=== PATIENT | male | born 1975 | race Caucasian/White ===

== ENCOUNTER 2024-03-27 22:48 | Observation (INO) | payer OTHER, SELFPAY ==
[2024-03-27 20:05] VITALS: BMI 27.5
[2024-03-27 20:08] VITALS: BP 134/93
--- NOTE | 2024-03-27 21:06 | ED.GENMED ---
History of Present Illness
<DAWN Ralph - Last Filed: 03/27/24 22:13>
General
Chief Complaint: Skin Problem
Source: patient
Exam Limitations: none
Time Seen by Provider: 03/27/24 20:15
Nursing documentation reviewed up to this point in time: agreed with
Travel History
Have you had any contact with someone who has COVID-19?: No
Do you have any symptoms of coronavirus? Fever > 100 degrees, chills, cough, shortness of breath, sore throat, loss of taste or smell, muscle aches, or headache?: No
History of Present Illness
History of Present Illness:
48-year-old male presents to the ED for evaluation. Pt reports for the past 2 days he has not felt well. Mother noticed a rash to his left lower leg Saturday however that rash is looking worse. Father reports he has been laying in bed all day
and was not eating anything or drinking anything yesterday. Today he drank fluids but did not eat anything.
He denies cough runny nose nasal congestion. Denies abdominal pain urinary frequency urgency. He went to urgent care prior to arrival and was found to have a 101 temp
Past History
<DAWN Ralph - Last Filed: 03/27/24 22:13>
Past History
ED Past Medical History: Asthma and GERD
ED Past Surgical History: None
Social History
Tobacco: Smoker
Alcohol: Occasional
Personal: Single
Living: with family
Employment: Employed
Review of Systems
<DAWN Ralph - Last Filed: 03/27/24 22:13>
Review of Systems
Allergies reviewed?: Yes
All Other Systems: ROS reviewed and negative except as documented in HPI and ROS
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
EENT: Reports no symptoms
Respiratory: Reports no symptoms
Cardiac: Reports no symptoms
ABD/GI: Reports anorexia; Denies nausea or vomiting
: Reports no symptoms
Musculoskeletal: Reports no symptoms
Skin: Reports other (redness to left leg )
Neurological: Reports no symptoms
Psychiatric: Reports no symptoms
Phy Exam
<DAWN Ralph - Last Filed: 03/27/24 22:13>
General Physical Exam
General Presentation: no apparent distress
General age: appears stated age
General Skin: warm and dry
General Habitus: normal
General Mental: alert
General Hydration: appears well hydrated
Neurological Exam
Neurological Exam: alert and oriented x3
Musculoskeletal Exam
Musculoskeletal Exam: full ROM and other (Left lower leg with scattered discoloration, appears ecchymotic/purpura like and red no obvious swelling to calf nontender no open wounds)
Course
<DAWN Ralph - Last Filed: 03/27/24 22:13>
Orders/Labs/Results
Orders:
Orders
03/27/24 21:11
C-Reactive Protein Urgent
Comment: ADD ON
COVID-19 Antigen Urgent
Source: Nasal Swab
Complete Blood Count/With Diff Urgent
Comprehensive Metabolic Panel Urgent
Erythrocyte Sed Rate Urgent
Comment: ADD ON
Lactic Acid Urgent
PTT Urgent
Prothrombin Time Urgent
Blood Culture Q30M
ANGEL Source: Blood/Venous
Specimen Description:
Influenza A+B Rapid Molecular Urgent
ANGEL Source: Nasal Swab
Specimen Description:
03/27/24 21:45
Blood Culture Q30M
ANGEL Source: Blood/Venous
Specimen Description:
03/27/24 21:48
Add On- LAB Urgent
Tests Added?: sed rate and crp
03/27/24 22:06
CeFAZolin 1 GRAM [Ancef] 1 gram in 5 ml IV NOW
03/27/24 22:10
NSS 1000mL Bolus WIDE OPEN 0.9% Sodium Chloride 1000 ml [Nss] 1,000 ml IV BOLUS
Abnormal Lab Results
03/27/24
21:11
Absolute Neuts (auto) 7.3 H 10^3/uL
(1.4-6.5)
Absolute Lymphs (auto) 0.8 L 10^3/uL
(1.2-3.4)
Absolute Monos (auto) 0.7 H 10^3/uL
(0.1-0.6)
Neutrophils % 82.1 H %
(42.2-75.2)
Lymphocytes % 8.8 L %
(20.5-51.1)
Sodium 128 L mmol/L
(135-145)
Chloride 94 L mmol/L
(98-107)
Glucose 107 H mg/dl
(70-99)
03/27/24 21:11
03/27/24 21:11
Vital Signs
Initial and Last Documented VS:
Initial Vital Signs
Temp Pulse Resp BP Pulse Ox
98.5 F 106 16 134/93 99
03/27/24 20:08 03/27/24 20:08 03/27/24 20:08 03/27/24 20:08 03/27/24 20:08
Last Documented Vital Signs
Temp Pulse Resp BP Pulse Ox
98.5 F 106 16 134/93 99
03/27/24 20:08 03/27/24 20:08 03/27/24 20:08 03/27/24 20:08 03/27/24 20:08
Sales Operations Consultant consulted with Physician
Sales Operations Consultant consulted with physician?: Yes
Name of Physician Consulted: Claude
<Ace Arce MD - Last Filed: 03/27/24 21:45>
Orders/Labs/Results
Orders:
Orders
03/27/24 21:11
C-Reactive Protein Urgent
Comment: ADD ON
COVID-19 Antigen Urgent
Source: Nasal Swab
Complete Blood Count/With Diff Urgent
Comprehensive Metabolic Panel Urgent
Erythrocyte Sed Rate Urgent
Comment: ADD ON
Lactic Acid Urgent
PTT Urgent
Prothrombin Time Urgent
Blood Culture Q30M
ANGEL Source: Blood/Venous
Specimen Description:
Influenza A+B Rapid Molecular Urgent
ANGEL Source: Nasal Swab
Specimen Description:
03/27/24 21:45
Blood Culture Q30M
ANGEL Source: Blood/Venous
Specimen Description:
03/27/24 21:48
Add On- LAB Urgent
Tests Added?: sed rate and crp
03/27/24 22:06
CeFAZolin 1 GRAM [Ancef] 1 gram in 5 ml IV NOW
03/27/24 22:10
NSS 1000mL Bolus WIDE OPEN 0.9% Sodium Chloride 1000 ml [Nss] 1,000 ml IV BOLUS
Abnormal Lab Results
03/27/24
21:11
Absolute Neuts (auto) 7.3 H 10^3/uL
(1.4-6.5)
Absolute Lymphs (auto) 0.8 L 10^3/uL
(1.2-3.4)
Absolute Monos (auto) 0.7 H 10^3/uL
(0.1-0.6)
Neutrophils % 82.1 H %
(42.2-75.2)
Lymphocytes % 8.8 L %
(20.5-51.1)
Sodium 128 L mmol/L
(135-145)
Chloride 94 L mmol/L
(98-107)
Glucose 107 H mg/dl
(70-99)
03/27/24 21:11
03/27/24 21:11
Vital Signs
Initial and Last Documented VS:
Initial Vital Signs
Temp Pulse Resp BP Pulse Ox
98.5 F 106 16 134/93 99
03/27/24 20:08 03/27/24 20:08 03/27/24 20:08 03/27/24 20:08 03/27/24 20:08
Last Documented Vital Signs
Temp Pulse Resp BP Pulse Ox
98.5 F 106 16 134/93 99
03/27/24 20:08 03/27/24 20:08 03/27/24 20:08 03/27/24 20:08 03/27/24 20:08
<DAWN Ralph - Last Filed: 03/27/24 22:13>
MDM/Problems Addressed
Differential Diagnosis Includes:
Not limited to cellulitis clotting issue
MDM/Problems Addressed:
Patient is a 48-year-old male with no past medical history who has not felt well over the past several days noticed a rash to his left lower leg which is gotten progressively worse. He has been sleeping for the past 2 days. On exam patient has a
rash to his left lower leg that almost looks like purpura mixed with erythema. Denies any fevers and is afebrile with a normal white count. Patient is not been eating or drinking that well his sodium was low at 120 he was given fluids. Patient
evaluated by ED physician. Coagulation tests were done PT PTT INR normal, platelets normal
With extent of rash and the fact that rash has become worse over the past several days with other symptoms of fatigue low sodium will admit
<DAWN Ralph - Last Filed: 03/27/24 22:13>
*Pulse Oximetry
Patient hypoxic: no
*Critical Care Note
Total Time (30-74mins, 75-104mins- exclusive of procedures): Not Applicable
ED Attending Note
<DAWN Ralph - Last Filed: 05/10/24 22:13>
-
Portions of this chart may have been created with voice recognition software.� Occasional wrong word or��sound alike� substitutions may have occurred due to the inherent limitations of voice recognition software.
<Ace Arce MD - Last Filed: 03/27/24 21:45>
ED Attending Note
Patient seen and examined by attending physician: Yes
I performed the substantive portion of visit, reviewed & personally made and approve the management plan that is documented in note by myself or HANS.: Yes
ED Attending Note:
48-year-old healthy male with a progressive rash to the left lower leg x 2 days. Feels like he might have a fever. Did have a 101 temp at urgent care. Rash is painful. No other rash noted except for the leg.
On exam patient is a purpuric large rash to mostly the left anterior medial ritter from the knee down towards the ankle. No petechia. No posterior calf tenderness cord or erythema. Good distal pulses and color. Patient is nontoxic in appearance
Vasculitis versus cellulitis. Labs and workup in progress. Warrants inpatient treat
Discharge Plan
Departure
Patient Disposition: Admit
Date of Disposition: 03/27/24
Time of Disposition: 22:12
Admit to: Med/Surg
Admit to doctor: hospitalist
Presentation/result/management discussed w/ accepting MD/DO: Hospitalist
Patient with high blood pressure during this ER visit?: Yes
Condition: Fair
Covid-19: Not Applicable
Discharge Problem:
Rash, Acute hyponatremia, Fatigue
Prescriptions:
No Action
ascorbic acid (vitamin C) [Vitamin C] 500 MG tablet
1,000 mg PO BID Qty: 56 0RF
Rx Instructions:
Take 1,000 mg twice a day for 14 days
albuterol sulfate 1 PUFF HFA aerosol inhaler
2 puff inhalation R Q4HPRN PRN (Reason: shortness of breath) Qty: 1 0RF
zinc sulfate 220 MG capsule
220 mg PO DAILY Qty: 14 0RF
Rx Instructions:
Take 220 mg daily for 14 days
cholecalciferol (vitamin D3) 1,000 UNITS tablet
2,000 units PO DAILY Qty: 28 0RF
Rx Instructions:
Take 2,000 units daily for 14 days
melatonin 5 MG tablet
5 mg PO HS Qty: 14 0RF
Rx Instructions:
Take 5 mg daily at bedtime for 14 days
sulfamethoxazole-trimethoprim 1 TABLET tablet
1 tab PO BID Qty: 14 0RF
omeprazole 40 MG capsule,delayed release(DR/EC)
40 mg PO DAILY Qty: 30 0RF
Referrals:
Tushar Gutierrez DO [Family Provider] -
Interventions
Interventions:
*General Assessment Last Done: 03/27/24 20:08
Discharge Date and Time
Print Language: SINHALA
[2024-03-27 21:30] LABS: % Basophils 0.5 % (0-2); % Eosinophils 0.3 % (0-6); % Immature Granulocytes 0.5 % (0-0.5); % Lymphocytes 8.8 % (20.5-51.1); % Monocytes 7.8 % (1.7-9.3); % Neutrophils 82.1 % (42.2-75.2); Absolute Lymphocytes 0.8 10^3/uL (1.2-3.4); Absolute Monocytes 0.7 10^3/uL (0.1-0.6); Absolute Neutrophils 7.3 10^3/uL (1.4-6.5); Hematocrit 43.5 % (39.0-52.0); Hemoglobin 16.1 g/dL (13.0-18.0); Mean Corpuscular Hgb 30.3 pg (27.0-31.0); Mean Corpuscular Volume 81.8 fL (80.0-94.0); Mean Platelet Volume 9.3 fL (7.4-10.4); Nucleated Red Blood Cells % 0 % (-); Platelet Count 162 10^3/uL (130-400); Red Blood Cell Count 5.32 10^6/uL (4.70-6.10); Red Cell Dist. Width 13.1 % (11.5-14.5); White Blood Cell Count 8.9 10^3/uL (4.8-10.8)
[2024-03-27 21:37] LABS: Lactic Acid 1.5 mmol/L (0.7-2.0)
[2024-03-27 21:40] LABS: APTT 33.7 Sec (23.4-35.0); INR 1.13; PT 14.4 Sec (11.4-14.6)
[2024-03-27 21:41] LABS: ALT (SGPT) 14 U/L (0-50); AST (SGOT) 38 U/L (17-59); Albumin 4.1 g/dl (3.5-5.0); Alkaline Phosphatase 83 U/L (38-126); Blood Urea Nitrogen 15 mg/dl (9-20); Calcium 9.1 mg/dl (8.4-10.2); Carbon Dioxide 23 mmol/L (22-30); Chloride 94 mmol/L (98-107); Glucose 107 mg/dl (70-99); Potassium 3.9 mmol/L (3.5-5.1); Sodium 128 mmol/L (135-145); Total Bilirubin 1.1 mg/dl (0.2-1.3); Total Protein 7.4 g/dl (6.3-8.2); eGFR > 60.00
[2024-03-27 22:00] VITALS: BP 132/78
[2024-03-27 22:18] LABS: Erythrocyte Sed Rate 31 mm/hour (0-20)
--- NOTE | 2024-03-27 22:30 | HPS.HSE ---
Addendum entered and electronically signed by Rosana Macdonald MD 03/28/24 07:11:
On review, the purpura starting by the ankle and moving centrally, non-specific generalized symptoms of headache, malaise raise concern for rickettsiosis. The geography is atypical but has been located throughout the country. Serology is
insensitive. Biopsy may be diagnostic. Patient may benefit from doxycycline. If spike fever, consider ID consult.
Original Note:
Family Physician
-
Family Physician: Tushar Gutierrez
Chief Complaint
-
Fatigue, fever, rash
History of Present Illness
This is a 48 y.o male who denies significant past medical history and not on any medications presenting with rash, malaise, flu like-illness.
Patient reported symptoms began about 2 days ago with a rash starting just below the ankles then spreading to the ritter over the last 2 days. He reports that 1 day ago he started having a non-productive cough with associated headache. He denies
sore throat, post nasal drip, nasal congestion or sinus congestion. He reports low appetitite and minimal po intake. He started taking Nyquil yesterday due to his symptoms. He also reports nausea and watery diarrhea x 3. Reported to have a fever
of 101 at urgent care just prior to coming to ED today.
Patient denies any other medications. He denies recent travels. He denies sick contacts.
In ED he was afbrile, hemodynamically stable but tachycardic to 106. Oxygen sat owas 99%. No respiratory distress. ECG with normal sinus rhythm at a rate of 76 and sinus arrhythmia. No ischemia. INR 1.1. White count was 8.9 hemoglobin 16
platelet 162. Labs are notable for a sodium of 128 with a normal BUN of 15 and creatinine 0.9. COVID is pending.
Medical History
Past Medical History
Past Medical History: Reports None
Past Surgical History: Reports None
Social History
Tobacco: Smoker
Alcohol: None
Drug: None
Personal: Single
Living: With Family
Employment: Employed
Family History
Family History: Not pertinent
Allergies / Home Medications
Allergies reflects when Allergies were last updated in [facility].
Home Medications with original date entered in [facility]
Allergy/Medication List:
Allergies
Allergy/AdvReac Type Severity Reaction Status Date / Time
No Known Allergies Allergy Verified 01/24/23 20:17
Home Medications
NyQuil 1 dose PO BID PRN cold/flu symptoms, sleep 03/27/24
Review of Systems
-
History Source: Patient
Constitutional: Reports Fever and Fatigue
Respiratory: Reports Cough
Cardiac: Reports No Symptoms
Abdomen/GI: Reports Nausea and Diarrhea
: Reports No Symptoms
Musculoskeletal: Reports Joint Pain
Skin: Reports Rash
Neurological: Reports Headache
Endocrine: Reports No Symptoms
Hematologic/Lymphatic: Reports No Symptoms
Psych: Reports No Symptoms
Physical Exam
Vital Signs
Vital Signs
Temp Pulse Resp BP Pulse Ox
98.5 F 106 16 134/93 99
03/27/24 20:08 03/27/24 20:08 03/27/24 20:08 03/27/24 20:08 03/27/24 20:08
Physical Exam
General: Well Developed, Well Nourished, No Apparent Distress and Poor Appetite
HEENT: NormoCephalic, Anicteric, Moist mucous membranes, Atraumatic and PERRLA
Respiratory: Clear
Cardiac: S1/S2 and Regular Rhythm
Breast: Deferred by me
GI: Soft, Non Tender, Non Distended and Normal Bowel Sounds
Rectal: Deferred by Provider
Genito-urinary: Deferred by me
Musculoskeletal: No Clubbing, No Cyanosis and Edema, Left Lower Extremity (trace)
Skin: Warm and Rash
Neuro: AO x 3
Hematologic/Lymphatic: No Lymphadenopathy
Psych: Calm
Laboratory Results
-
03/27/24 21:11
03/27/24 21:11
Laboratory Results
PT 14.4 Sec (11.4-14.6) 03/27/24 21:
INR 1.13 03/27/24 21:
APTT 33.7 Sec (23.4-35.0) 03/27/24 21:
Lactic Acid 1.5 mmol/L (0.7-2.0) 03/27/24:
Total Bilirubin 1.1 mg/dl (0.2-1.3) 03/27/24:
AST 38 U/L (17-59) 03/27/24:
ALT 14 U/L (0-50) 03/27/24 21:
Alkaline Phosphatase 83 U/L (38-126) 03/27/24 21:
Data Reviewed
-
Medical Tests (Nuc Med, Echo, EKG etc): Image Personally Visualized and interpreted
Lab Data: Labs Reviewed by me
Old Records: Reviewed
Impression/Plan
-
IMPRESSION:
Patient with a localized left lower extremity rash and associated non-specific symptoms of malaise, generalized aches and pains, loss of appetite and lab notable for significant hyponatremia. Does not appear toxic but is ill-appearing.
PLAN:
1. Fever - Said to have fever at urgent care to 101. No fever in ED. No tylenol given. No leukocytosis on labs. Reports non-productive cough and headache without any significant sinus symptoms.
- admit to med/surg
- xray, procalcitonin, flu and covid testing
- blood cultures sent
- u/a and urine cultures
- ceftriaxone IV for now
2. Rash - Purpuric rash developing over 2 days in the left leg. Mild edema. There is warmth and tenderness to palpation c/w cellulitis. However the purpura is more c/w vasculitis. INR WNL.
- blood culture as above, rule if negative and still febrile may need to rule out endocarditis
- u/a for hematuria/casts
- check esr/crp
- check lfts
- derm consultation
3. Hyponatremia - Suspect hypovolemic given 2 days of poor appetite, low po, diarrhea and mild vomiting.
- check urine Na and osmolality
- iv fluids for now
- repeat Na in am
DVT PPX - lovenox sq
Full Code
[2024-03-27] MEDS: NSS 1000 IV (22:31)
[2024-03-27 22:48] LABS: COVID-19 Antigen Negative (Negative)
[2024-03-27 23:23] VITALS: BP 124/73
[2024-03-27] MEDS: ANCEF 5 IV (23:27)
[2024-03-28] VITALS: BP 127/76
[2024-03-28 00:37] VITALS: BMI 27.9
[2024-03-28 00:39] VITALS: BP 107/78
[2024-03-28] MEDS: TYLENOL 650 MG PO ×6 (00:48→21:18)
[2024-03-28] MEDS: NSS 1000 IV ×2 (00:49→03:10)
[2024-03-28 02:25] LABS: Urine Albumin Trace (Neg - Trace); Urine Bilirubin Negative (Negative); Urine Character Clear (Clear); Urine Color Yellow; Urine Glucose Negative (Negative); Urine Ketone Negative (Negative); Urine Leukocyte Negative (Negative); Urine Nitrite Negative (Negative); Urine Occult Blood Negative (Negative); Urine Specific Gravity 1.005 (<1.030); Urine Urobilinogen Negative (Neg - 1+)
[2024-03-28 02:35] LABS: Osmolality Urine 153 mOsm/kg (300-900)
[2024-03-28 02:46] LABS: Urine Sodium < 5 mmol/L (30-90)
[2024-03-28 07:50] VITALS: BP 109/69
[2024-03-28 08:23] LABS: Hematocrit 39.7 % (39.0-52.0); Hemoglobin 14.1 g/dL (13.0-18.0); Mean Corp Hgb Conc. 35.5 g/dL (33.0-37.0); Mean Corpuscular Hgb 29.7 pg (27.0-31.0); Mean Corpuscular Volume 83.8 fL (80.0-94.0); Mean Platelet Volume 9.4 fL (7.4-10.4); Platelet Count 143 10^3/uL (130-400); Red Blood Cell Count 4.74 10^6/uL (4.70-6.10); Red Cell Dist. Width 13.2 % (11.5-14.5)
[2024-03-28] MEDS: ANCEF 5 IV (08:23)
[2024-03-28 08:44] LABS: Procalcitonin 0.51 ng/ml (0.0-0.25)
[2024-03-28 08:57] LABS: Blood Urea Nitrogen 13 mg/dl (9-20); Calcium 8.2 mg/dl (8.4-10.2); Carbon Dioxide 26 mmol/L (22-30); Chloride 99 mmol/L (98-107); Estimated Creatinine Clearance > 125 ml/min; Glucose 95 mg/dl (70-99); Magnesium 2.2 mg/dl (1.6-2.3); Potassium 3.5 mmol/L (3.5-5.1); Sodium 132 mmol/L (135-145); eGFR > 60.00
--- NOTE | 2024-03-28 13:18 | W.PN.HOSP.TC ---
Addendum entered and electronically signed by Kylie Maloney MD 03/28/24 14:06:
Patient seen and examined independently--agree with plan set forth by Dr. Park
GENERAL: well developed, well nourished,male in no apparent distress
HEENT: NC/AT
HEART: regular rate and rhythm, +S1, +S2
LUNGS : clear to auscultation bilaterally
ABDOM: soft, nontender, nondistended, + bowel sounds
EXT: no cyanosis, clubbing--mildly swollen left ankle
NEUROLOGIC: grossly intact
SKIN: large purplish purpuric rash on left leg between knee and ankle with faint redness going up towards thigh--NO rash on palms of hands or soles of feet--no other rash elsewhere--tattoo on right calf
Fever/rash -- likely related to the leg/skin findings--follow temp curve--Chest x-ray unremarkable--Negative for flu--Blood cultures are pending--cont rocephin--await ID
Purpuric rash--pt works at [employer] but does not hike or go outdoors much--insect bite (spider, tick), vasculitis, infection, DVT all possible--inflammatory markers are elevated, LFTs are normal--await ID--add doxycycline--check US r/o DVT
Hyponatremia--Suspect due to hypovolemia as pt had n/v/d--Sodium improving with IV fluids
DVT prophylaxis Lovenox
CODE STATUS full code
Original Note:
Today's Communication/Plan
-
Continue ceftriaxone for now
Add doxycycline
Assessment / Plan
Assessment / Plan
Impression
Fever
Purpuric rash
Hyponatremia
Assessment and plan
Fever
Patient has been febrile in the past 24 hours with true fever of 101.4
Patient is hemodynamically stable
Chest x-ray unremarkable
Pro-Keith 0.51
Negative for flu
Blood cultures are pending
Will continue ceftriaxone IV for now-as the patient states that his symptoms have improved
Consult ID
Purpuric rash
Differential diagnosis for fever with rash
Suspect #1 vasculitis #2 tick bite #3 insect bite(brown recluse spider) #4 infection
Consults ID
Elevated ESR/CRP indicating infection
LFTs are normal
Will add doxycycline for possible tick/insect bite
Will check peripheral ultrasound to rule out DVT
Hyponatremia
Suspect due to hypovolemia
Sodium improving with IV fluids
DVT prophylaxis Lovenox
CODE STATUS full code
Anticipated Discharge: > 48 hours
Subjective/Interval History
-
Date of Service: March 28, 2024
48-year-old male with [place] disease any significant past medical history, is not on any medications presented to the ED with purpuric rash, diarrhea, fever. Patient sister reports of him being in autism spectrum disorder. Patient states that the
symptoms has been going on for the past 2 days, starting on 03/25. Patient states that fever and the rash presented together. The rash first started above the left ankle spreading to the ritter, upto below the knee. Patient states that he was unable
to bear weight on his left leg as it was painful. He he also reports of a day of nonproductive cough with headache. He denies sore throat postnasal drip nasal congestion no sinus congestion. He reports of nausea and watery diarrhea x 3. Reported
to have 101 fever at urgent care prior to coming to ED. the only medication he took was NyQuil he denies any taking any other medication, recent travels, sick contacts. In the past 24 hours in the hospital he has had 1 episode of true fever with
101.4.
Objective Data
-
Labs:
Laboratory Results
03/28/24
07:01
WBC 6.0
Hgb 14.1
Hct 39.7
Plt Count 143
Sodium 132 L
Potassium 3.5
Chloride 99
Carbon Dioxide 26
BUN 13
Creatinine 0.8
Glucose 95
Calcium 8.2 L
Vital Signs:
Vital Signs
Temp Pulse Resp BP Pulse Ox
98 F 75 16 109/69 99
03/28/24 07:50 03/28/24 07:50 03/28/24 07:50 03/28/24 07:50 03/28/24 07:50
Review of Systems
-
History Source: Patient and Family
All other systems: Reviewed and negative (Except mentioned)
Skin: Reports Rash (No improvement) and Other (Reports of tightening when walking)
Physical Exam
-
General: Comfortable and Conversant
HEENT: Normocephalic and Atraumatic
Respiratory: Clear to Auscultation
Cardiac: Regular Rhythm and S1/S2
GI: Soft, Nontender, Nondistended and Normal Bowel Sounds
Musculoskeletal: Other (Left ankle edema 2+ pitting)
Skin: Warm and Rash (Purpuric rash starting above left ankle extending up to the ritter, bite garrido noted )
Neuro: AO x 3
Psych: Calm
Data Reviewed
-
Labs: Labs Reviewed by me and Discussed with Physician
[2024-03-28] MEDS: NSS IV (14:37)
--- NOTE | 2024-03-28 14:51 | CM ---
coding compliance manager reviewed patient's chart and met with patient and patient lives with his parents in a multilevel home, patient is independent with adl's and ambulation, no dme, patient drives, patient has a prescription plan and patient uses [facility].
PCP: Dr. rosen
Plan; Home when stable, no needs.
--- NOTE | 2024-03-28 15:14 | CON.ID ---
Consultation
-
Date/Time Consultation Requested: 03/28/2024 1027
Date/Time Consultation Performed: 03/28/2024 1500
Requesting Provider: Dr. Park
Performing Provider: Dr. Alvarez
Reason for Consultation: Left leg infection
Chief Complaint / Past History
History of Present Illness
Isaiah Vance is a 48-year-old man being evaluated at the request of Dr. Park in regards to left lower extremity cellulitis. History is obtained from chart review, along with patient interview.
The patient denies any prior medical history and reports he was in his usual state of health until 3 days ago when he woke up with some erythema noted on the left medial ankle. Over the next several days there was marked spread of the area, along
with swelling of the lower extremity. Additionally, he had some episodes of vomiting and generalized lethargy. He was seen at a local urgent care where he was found to have a temperature of 101 degrees.
He denies any trauma to the area. He denies any bites from insects that he knows about. He has not had any travel out of the general area. He has admitted to some sweats.
Past History
Past Medical History: None
Additional Past Surgical History:
Right thumb surgery
Right ankle ORIF with plate and screws
Allergy History:
No Known Allergies Allergy (Verified 01/24/23 20:17)
Medications Reviewed: Yes
Current Antibiotics:
Cefazolin
Social History
Tobacco: Smoker (1/2 PPD)
Alcohol: Occasional
Drug: None
Personal: Single
Living: With Family
Employment: Employed ([employer])
Family History
Family History: Not Pertinent
Review of Systems
Vital Signs
Temp Pulse Resp BP Pulse Ox
98 F 75 16 109/69 99
03/28/24 07:50 03/28/24 07:50 03/28/24 07:50 03/28/24 07:50 03/28/24 07:50
Physical Exam
Physical Exam
Constitutional: No Acute Distress, Comfortable and Non-toxic
Head: Normocephalic
Eyes: Pupils Equal, Pupils Round, No Conjunctival Hemorrhage and Sclera Anicteric
Oral: No Thrush and No Ulcers
Cardiovascular: S1/S2; Negative S3/S4 or Murmur
Pulmonary: Clear and Non Labored
Gastrointestinal: Soft, Non Tender, Non Distended and Normal Bowel Sounds
Extremities: Edema
Skin: Rash (Left leg with erythema and purpuric type rash extending from the ankle up to the proximal calf area.)
Neurological: Awake and Alert
Psychological: Calm
Lab / Diagnostic Study Results
03/28/24 07:01
03/28/24 07:01
Abs Immat Gran (auto) 0.0 10^3/uL (0-0.05) 03/27/24 21:11
Absolute Neuts (auto) 7.3 10^3/uL (1.4-6.5) H 03/27/24 21:11
Absolute Lymphs (auto) 0.8 10^3/uL (1.2-3.4) L 03/27/24 21:11
Absolute Monos (auto) 0.7 10^3/uL (0.1-0.6) H 03/27/24 21:11
Absolute Basos (auto) 0.0 10^3/uL (0-0.2) 03/27/24 21:11
Immature Gran % 0.5 % (0-0.5) 03/27/24 21:11
Neutrophils % 82.1 % (42.2-75.2) H 03/27/24 21:11
Lymphocytes % 8.8 % (20.5-51.1) L 03/27/24 21:11
Monocytes % 7.8 % (1.7-9.3) 03/27/24 21:11
Eosinophils % 0.3 % (0-6) 03/27/24 21:11
Basophils % 0.5 % (0-2) 03/27/24 21:11
ESR 31 mm/hour (0-20) H 03/27/24 21:11
PT 14.4 Sec (11.4-14.6) 03/27/24 21:11
INR 1.13 03/27/24 21:11
Lactic Acid 1.5 mmol/L (0.7-2.0) 03/27/24 21:11
C-Reactive Protein 226.60 mg/L (0.0-10.00) H 03/27/24 21:11
Procalcitonin 0.51 ng/ml (0.0-0.25) H 03/28/24 07:01
Microbiology Results
Micro:
03/28/24 02:29 C. difficile GDH Antigen & Toxins - Final
Feces/Stool Negative for toxigenic C.difficile
03/27/24 22:04 Blood Culture - Pending
Blood/Venous
03/27/24 22:04 Influenza Types A & B (DARIUS) - Final
Nasal Swab Negative for Influenza A & B, NAAT
Negative results must be combined with clinical observations
and patient history.
Nucleic Acid Amplification test (NAAT)performed on the
[employer] platform.
03/27/24 21:11 Blood Culture - Pending
Blood/Venous
Assessment / Plan
Left leg cellulitis
Left leg purpura of unclear etiology
Nausea/vomiting
Tobacco abuse
Recommendations:
At present, etiology of the left leg purpura is not immediately clear. Findings are entirely consistent cellulitis.
Potential envenomation by a spider is possible, although somewhat unlikely.
Vasculitis should be kept on the differential.
Will continue with cefazolin 2 g IV every 8 hours.
Consider biopsy.
Consider Dermatology and/or Rheumatology evaluation.
Care Review
Plan reviewed with: Physician (Hospitalist)
[2024-03-28 15:51] VITALS: BP 112/70
[2024-03-28] MEDS: ANCEF 10 IV (16:28)
[2024-03-28] MEDS: LOVENOX 40 MG SC (16:29)
[2024-03-28] MEDS: VIBRAMYCIN 100 MG PO (21:18)
[2024-03-28 23:30] VITALS: BP 133/77
[2024-03-29] MEDS: TYLENOL 650 MG PO ×6 (00:11→20:54)
[2024-03-29] MEDS: ANCEF 10 IV ×3 (00:11→17:48)
[2024-03-29] MEDS: TYLENOL PO (05:04)
[2024-03-29 06:43] LABS: % Basophils 0.4 % (0-2); % Eosinophils 0.7 % (0-6); % Immature Granulocytes 0.5 % (0-0.5); % Lymphocytes 13.1 % (20.5-51.1); % Monocytes 14.7 % (1.7-9.3); % Neutrophils 70.6 % (42.2-75.2); Absolute Eosinophils 0.1 10^3/uL (0-0.7); Absolute Monocytes 1.1 10^3/uL (0.1-0.6); Absolute Neutrophils 5.4 10^3/uL (1.4-6.5); Hematocrit 35.3 % (39.0-52.0); Hemoglobin 12.9 g/dL (13.0-18.0); Mean Corp Hgb Conc. 36.5 g/dL (33.0-37.0); Mean Corpuscular Hgb 30.1 pg (27.0-31.0); Mean Corpuscular Volume 82.5 fL (80.0-94.0); Nucleated Red Blood Cells % 0 % (-); Platelet Count 161 10^3/uL (130-400); Red Blood Cell Count 4.28 10^6/uL (4.70-6.10); Red Cell Dist. Width 13.4 % (11.5-14.5); White Blood Cell Count 7.6 10^3/uL (4.8-10.8)
[2024-03-29 07:05] LABS: Blood Urea Nitrogen 8 mg/dl (9-20); Calcium 8.2 mg/dl (8.4-10.2); Carbon Dioxide 30 mmol/L (22-30); Chloride 98 mmol/L (98-107); Estimated Creatinine Clearance > 125 ml/min; Glucose 92 mg/dl (70-99); Potassium 3.2 mmol/L (3.5-5.1); Sodium 133 mmol/L (135-145); eGFR > 60.00
[2024-03-29 07:22] VITALS: BP 124/82
[2024-03-29] MEDS: VIBRAMYCIN 100 MG PO ×2 (10:02→20:54)
--- NOTE | 2024-03-29 12:22 | W.PN.HOSP.TC ---
Addendum entered and electronically signed by Kylie Maloney MD 03/29/24 13:29:
Patient seen and examined independently--agree with plan set forth by Dr. Park
GENERAL: well developed, well nourished,male in no apparent distress
HEENT: NC/AT
HEART: regular rate and rhythm, +S1, +S2
LUNGS : clear to auscultation bilaterally
ABDOM: soft, nontender, nondistended, + bowel sounds
EXT: no cyanosis, clubbing--mildly swollen left ankle
NEUROLOGIC: grossly intact
SKIN: some improvement to large purplish purpuric rash on left leg between knee and ankle with faint redness going up towards thigh with patches of clearing--NO rash on palms of hands or soles of feet--no other rash elsewhere--tattoo on right calf
Fever/rash -- likely related to the leg/skin findings--follow temp curve--Chest x-ray unremarkable--Negative for flu--Blood cultures are pending--cont rocephin--await ID
Purpuric rash--pt works at [employer] but does not hike or go outdoors much--insect bite (spider, tick), vasculitis, infection all possible--inflammatory markers are elevated, LFTs are normal--apprec ID--added doxycycline--US neg for DVT--consider
derm and/or rheum consult in AM, would benefit from skin biopsy--follow inflammatory markers (ESR, CRP)
Hyponatremia/hypokalemia--Suspect due to hypovolemia as pt had n/v/d--Sodium improving with IV fluids--replete K
DVT prophylaxis Lovenox
CODE STATUS full code
Original Note:
Today's Communication/Plan
-
replete K
Skin biopsy
consult dermatology
Consult rheumatology
Assessment / Plan
Assessment / Plan
Impression
Fever
Purpuric rash
Hyponatremia
Hypokalemia
Assessment and plan
Fever
Afebrile in the past 24 hours
Patient is hemodynamically stable
Chest x-ray unremarkable
Pro-Keith 0.51
Negative for flu, covid
Blood cultures no growth prelim
Drop in Hb TO 12.9<14.1
Continue Cefepime and doxycycline
Purpuric rash
Not sure what is causing the rash
Some improvement today
Differential diagnosis for fever with rash
Suspect #1 vasculitis #2 tick bite #3 insect bite(brown recluse spider) #4 infection
Elevated ESR/CRP indicating infection
LFTs are normal
Peripheral Ultrasound negative for DVT
Considering skin biopsy per ID
Will consult dermatology tomorrow
Consult rheum
Hyponatremia
Suspect due to hypovolemia
Sodium improving - 133
Hypokalemia
Replete K
DVT prophylaxis Lovenox
CODE STATUS full code
Anticipated Discharge: > 48 hours
Subjective/Interval History
-
Date of Service: March 29, 2024
Patient reports of pain in left leg while getting out of bed. He is able to walk.
Objective Data
-
Labs:
Laboratory Results
03/29/24
06:09
WBC 7.6
Hgb 12.9 L
Hct 35.3 L
Plt Count 161
Sodium 133 L
Potassium 3.2 L
Chloride 98
Carbon Dioxide 30
BUN 8 L
Creatinine 0.7
Glucose 92
Calcium 8.2 L
Vital Signs:
Vital Signs
Temp Pulse Resp BP Pulse Ox
97.7 F 80 18 133/77 97
03/28/24 23:30 03/28/24 23:30 03/28/24 23:30 03/28/24 23:30 03/28/24 23:30
I&O
03/28/24 03/29/24 03/30/24
06:59 06:59 06:59
Intake Total 1480 / 1480
Balance 1480 / 1479
Review of Systems
-
History Source: Patient
All other systems: Reviewed and negative
Physical Exam
-
General: Comfortable and Conversant
HEENT: Normocephalic and Atraumatic
Respiratory: Clear to Auscultation
Cardiac: Regular Rhythm and S1/S2
GI: Soft, Nontender and Nondistended
Skin: Warm and Rash (some improvement )
Data Reviewed
-
Labs: Labs Reviewed by me and Discussed with Physician
[2024-03-29] MEDS: KCL 40 MEQ PO (13:32)
[2024-03-29 15:34] VITALS: BP 110/71
--- NOTE | 2024-03-29 16:15 | W.PN.ID1 ---
Date of Service
Date of Service: March 29, 2024
Today's Communication
Continue cefazolin for today. Await potential biopsy.
Assessment / Plan
Left leg cellulitis
Left leg purpura of unclear etiology
Nausea/vomiting
Tobacco abuse
Recommendations:
At present, etiology of the left leg purpura is not immediately clear. Findings are not entirely consistent with cellulitis.
Potential envenomation by a spider is possible, although somewhat unlikely.
Vasculitis should be kept on the differential.
Will continue with cefazolin 2 g IV every 8 hours.
For potential biopsy.
Consider Dermatology and/or Rheumatology evaluation.
Chief Complaint
-: Other (Left lower extremity lesions.)
Subjective / Review of Systems
Review of Systems: No Fever and No Chills
Vital Signs / Physical Exam
Vital Signs
Vital Signs
Temp Pulse Resp BP Pulse Ox
99 F 79 18 124/82 98
03/29/24 07:22 03/29/24 07:22 03/29/24 07:22 03/29/24 07:22 03/29/24 07:22
Physical Exam
Constitutional: No Acute Distress, Comfortable and Non-toxic
Pulmonary: Non Labored
Skin: Rash (Petechial type rash (palpable) noted on the left lower extremity.)
Neurological: Awake and Alert
Psychological: Calm
Objective Data
Lab Data
Lab Results
03/29/24 06:09
03/29/24 06:09
ESR 31 mm/hour (0-20) H 03/27/24 21:11
PT 14.4 Sec (11.4-14.6) 03/27/24 21:11
INR 1.13 03/27/24 21:11
APTT 33.7 Sec (23.4-35.0) 03/27/24 21:11
Estimated Creat Clear > 125 ml/min 03/29/24 06:09
Lactic Acid 1.5 mmol/L (0.7-2.0) 03/27/24 21:11
Total Bilirubin 1.1 mg/dl (0.2-1.3) 03/27/24 21:11
AST 38 U/L (17-59) 03/27/24 21:11
ALT 14 U/L (0-50) 03/27/24 21:11
Alkaline Phosphatase 83 U/L (38-126) 03/27/24 21:11
C-Reactive Protein 226.60 mg/L (0.0-10.00) H 03/27/24 21:11
Most recent labs reviewed.
Micro Results:
03/27/24 22:04 Blood Culture - Preliminary
Blood/Venous No Growth in 24 hours- Final report to follow
03/27/24 21:11 Blood Culture - Preliminary
Blood/Venous No Growth in 24 hours- Final report to follow
03/28/24 02:29 C. difficile GDH Antigen & Toxins - Final
Feces/Stool Negative for toxigenic C.difficile
03/27/24 22:04 Influenza Types A & B (DARIUS) - Final
Nasal Swab Negative for Influenza A & B, NAAT
Negative results must be combined with clinical observations
and patient history.
Nucleic Acid Amplification test (NAAT)performed on the
[employer] platform.
[2024-03-29] MEDS: LOVENOX 40 MG SC (17:49)
[2024-03-29 23:30] VITALS: BP 115/68
[2024-03-30] MEDS: ANCEF 10 IV ×2 (00:02→08:46)
[2024-03-30] MEDS: TYLENOL PO ×2 (00:02)
[2024-03-30] MEDS: TYLENOL 650 MG PO ×3 (03:13→12:03)
[2024-03-30 07:30] VITALS: BP 131/86
[2024-03-30 08:23] LABS: % Basophils 0.5 % (0-2); % Immature Granulocytes 1.1 % (0-0.5); % Lymphocytes 17.4 % (20.5-51.1); % Monocytes 10.3 % (1.7-9.3); % Neutrophils 69.7 % (42.2-75.2); Absolute Basophils 0.1 10^3/uL (0-0.2); Absolute Eosinophils 0.1 10^3/uL (0-0.7); Absolute Immature Granulocytes 0.1 10^3/uL (0-0.05); Absolute Lymphocytes 1.6 10^3/uL (1.2-3.4); Absolute Neutrophils 6.5 10^3/uL (1.4-6.5); Hematocrit 37.4 % (39.0-52.0); Hemoglobin 13.5 g/dL (13.0-18.0); Mean Corp Hgb Conc. 36.1 g/dL (33.0-37.0); Mean Corpuscular Hgb 30.1 pg (27.0-31.0); Mean Corpuscular Volume 83.3 fL (80.0-94.0); Mean Platelet Volume 9.6 fL (7.4-10.4); Nucleated Red Blood Cells % 0 % (-); Platelet Count 218 10^3/uL (130-400); Red Blood Cell Count 4.49 10^6/uL (4.70-6.10); Red Cell Dist. Width 13.7 % (11.5-14.5); White Blood Cell Count 9.3 10^3/uL (4.8-10.8)
[2024-03-30 08:44] LABS: Blood Urea Nitrogen 7 mg/dl (9-20); Calcium 8.8 mg/dl (8.4-10.2); Carbon Dioxide 29 mmol/L (22-30); Chloride 97 mmol/L (98-107); Estimated Creatinine Clearance > 125 ml/min; Glucose 83 mg/dl (70-99); Potassium 3.6 mmol/L (3.5-5.1); Sodium 136 mmol/L (135-145); eGFR > 60.00
[2024-03-30] MEDS: VIBRAMYCIN 100 MG PO (08:46)
[2024-03-30 09:05] LABS: Erythrocyte Sed Rate 43 mm/hour (0-20)
--- NOTE | 2024-03-30 09:37 | CM ---
Chart reviewed and patient lives with parents, is independent with adl's and ambulation, no dme, home when stable.
Plan; Home when stable.
--- NOTE | 2024-03-30 12:37 | W.PN.HOSP.TC ---
Today's Communication/Plan
-
d/c
Assessment / Plan
Assessment / Plan
pt is a 48 year old male
Fever -- likely viral in nature--follow temp curve--Chest x-ray unremarkable--Negative for flu--Blood cultures are negative--cont rocephin--apprec ID--keflex x 5 days
Purpuric rash--likely vasculitis from viral illness---inflammatory markers are elevated, LFTs are normal--apprec ID--US neg for DVT-- derm and rheum f/u being arranged
Hyponatremia/hypokalemia--Suspect due to hypovolemia as pt had n/v/d--Sodium improving with IV fluids--replete K
DVT prophylaxis Lovenox
CODE STATUS full code
Anticipated Discharge: Today
Subjective/Interval History
-
Date of Service: March 30, 2024
pt doing OK
Objective Data
-
Labs:
Laboratory Results
03/30/24
07:45
WBC 9.3
Hgb 13.5
Hct 37.4 L
Plt Count 218 D
Sodium 136
Potassium 3.6
Chloride 97 L
Carbon Dioxide 29
BUN 7 L
Creatinine 0.6 L
Glucose 83
Calcium 8.8
Vital Signs:
max temp for 24 hours
03/29/24
07:22
Temp 99 F
Vital Signs
Temp Pulse Resp BP Pulse Ox
97.7 F 79 19 131/86 99
03/30/24 07:30 03/30/24 07:30 03/30/24 07:30 03/30/24 07:30 03/30/24 07:30
I&O
03/29/24 03/30/24 03/31/24
06:59 06:59 06:59
Intake Total 1480 / 1480 4292 / 429
Balance 1479 4292 / 429
Review of Systems
-
All other systems: Reviewed and negative
Physical Exam
-
General: Well Developed, Well Nourished and No Apparent Distress
HEENT: Normocephalic and Atraumatic
Respiratory: Clear to Auscultation; Negative Wheezes, Rales, Rhonchi or Crackles
Cardiac: Regular Rhythm and S1/S2; Negative Murmur
GI: Soft, Nontender, Nondistended and Normal Bowel Sounds
Musculoskeletal: No Clubbing, No Cyanosis and No Edema
Skin: Other (purpura rash--some clearing noted)
Neuro: Awake
Psych: Calm
[2024-03-30 13:00] LABS: Complement C3 162 mg/dl (88-165); IgA 386 mg/dl (70-400); IgG 895 mg/dl (700-1600); IgM 60 mg/dl (40-230)
[2024-03-30] MEDS: DELTASONE 60 MG PO (13:04)
--- NOTE | 2024-03-30 13:22 | W.PN.ID1 ---
Date of Service
Date of Service: March 30, 2024
Today's Communication
Continue with antibiotics. Can transition to Keflex at discharge
Assessment / Plan
Left leg cellulitis
Left leg purpura of unclear etiology
Nausea/vomiting
Tobacco abuse
Recommendations:
At present, etiology of the left leg purpura is not immediately clear. Findings are not entirely consistent with cellulitis.
Vasculitis should be kept on the differential.
Patient for discharge. Would continue with cephalexin an additional 5 to 7 days. Patient for outpatient follow-up with Dermatology and/or Rheumatology
Chief Complaint
-: Other (Left lower extremity lesions.)
Subjective / Review of Systems
Review of Systems: No Fever and No Chills
Vital Signs / Physical Exam
Vital Signs
Vital Signs
Temp Pulse Resp BP Pulse Ox
97.7 F 79 19 131/86 99
03/30/24 07:30 03/30/24 07:30 03/30/24 07:30 03/30/24 07:30 03/30/24 07:30
Physical Exam
Constitutional: No Acute Distress and Comfortable
Cardiovascular: S1/S2; Negative S3/S4
Pulmonary: Non Labored
Extremities: Edema
Skin: Rash (Rash on left lower extremity appears about the same as yesterday's exam. No significant change.)
Neurological: Awake and Alert
Objective Data
Lab Data
Lab Results
03/30/24 07:45
03/30/24 07:45
ESR 43 mm/hour (0-20) H 03/30/24 07:45
PT 14.4 Sec (11.4-14.6) 03/27/24 21:11
INR 1.13 03/27/24 21:11
APTT 33.7 Sec (23.4-35.0) 03/27/24 21:11
Estimated Creat Clear > 125 ml/min 03/30/24 07:45
Lactic Acid 1.5 mmol/L (0.7-2.0) 03/27/24 21:11
Total Bilirubin 1.1 mg/dl (0.2-1.3) 03/27/24 21:11
AST 38 U/L (17-59) 03/27/24 21:11
ALT 14 U/L (0-50) 03/27/24 21:11
Alkaline Phosphatase 83 U/L (38-126) 03/27/24 21:11
C-Reactive Protein 144.80 mg/L (0.0-10.00) H 03/30/24 07:45
Most recent labs reviewed.
Micro Results:
03/27/24 22:04 Blood Culture - Preliminary
Blood/Venous No Growth in 48 hours- Final report to follow
03/27/24 21:11 Blood Culture - Preliminary
Blood/Venous No Growth in 48 hours- Final report to follow
03/28/24 02:29 C. difficile GDH Antigen & Toxins - Final
Feces/Stool Negative for toxigenic C.difficile
03/27/24 22:04 Influenza Types A & B (DARIUS) - Final
Nasal Swab Negative for Influenza A & B, NAAT
Negative results must be combined with clinical observations
and patient history.
Nucleic Acid Amplification test (NAAT)performed on the
[employer] platform.
Care Review
Plan reviewed with: Physician (Hospitalist)
--- NOTE | 2024-03-30 14:23 | W.DCSUMMARY ---
Discharge Summary
Discharge Data
Date of Admission: 03/27/24
Date of Discharge: 03/30/24
-
Pending Results: Yes
Additional Pending Results:
STEVE, rheumatoid factor, anti-CCP, C3, C4, cryoglobulins, hepatitis B and C, ANCA panel, HLA-B27, nxtb-[id number] DNA, anti-Moscoso/CLINICAL NEUROPSYCHOLOGIST antibody, anti-SSA, anti-SSB, SPEP with immunofixation with reflex, IgG, IgA, IgM
Hospital Course
Primary care physician : Tushar Gutierrez
Principal Discharge diagnosis : Fever, purpuric rash, hyponatremia/hypokalemia
Chronic Discharge diagnosis : Autism spectrum disorder
Hospital Course : Patient was a 48-year-old male without any significant past medical history. 2 days prior to admission he developed a rash starting just above his left ankle then spreading to the ritter. 1 day prior to admission he had
nonproductive cough, headache, nausea, watery diarrhea, and fever to 101 at home. Workup in the emergency department found him to be slightly tachycardic with hyponatremia sodium of 128 and purpuric rash on his left leg. Patient was admitted.
Problem #1: Fever. This was likely viral in nature given his nausea, vomiting, diarrhea, fever and nonproductive cough. COVID was checked and was negative, flu was negative as well. Blood cultures were checked and were negative. Patient was
started on IV Rocephin. Doxycycline was added. Infectious disease was consulted. He has been transitioned to 5 more days of Keflex.
Problem #2: Purpuric rash. 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 Sed rate and CRP were elevated. LFTs were normal. Ultrasound was checked and was negative for DVT. Once he was started on antibiotics he had
some mild clearing but certainly not complete resolution of this rash. Dermatology has been contacted to set the patient up for a biopsy in the outpatient setting. Rheumatology has also been contacted to get follow-up as an outpatient. All of the
outstanding labs above were ordered by myself and are pending at this time.
Problem #3: Hyponatremia/hypokalemia. This resolved with IV fluid administration.
Patient is stable for discharge home at this time. If there are any questions regarding this dictation or his hospital stay, please not hesitate to call. Our office number is [phone].
Time for discharge was over 4 hours (most of the morning of March 30, 2024) arranging dermatology and rheumatology follow-up.
Important imaging findings :
PERIPHERAL VENOUS ULTRASOUND IMPRESSION:
No sonographic evidence for lower extremity venous thrombosis.
Discharge Plan
-
Patient Disposition: Home (Routine Discharge)
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
Condition: Good
Diet: As tolerated and Regular
Activity: As tolerated
Driving Restrictions: As prior to admission
Bathing Restrictions: None
Activity Restrictions/Additional Instructions:
Note to be off from work will be provided--you will need to obtain a return to work from your primary care physician
Follow-up with dermatology and rheumatology as directed
Referrals:
Tushar Gutierrez, DO [Family Provider] - in less than 1 week
Prescriptions:
New
cephalexin 500 mg capsule
500 mg PO TID Qty: 15 0RF
prednisone 20 mg tablet
40 mg PO DAILY Qty: 30 0RF
Discontinued
NyQuil
1 dose PO BID PRN (Reason: cold/flu symptoms, sleep)
Discharge Orders:
Discharge Patient (As Directed); Ordered 03/30/24
Ordered By: Kylie Maloney
Discharge Date and Time
Print Language: THAI
[2024-03-30 14:48] LABS: Hepatitis B Surface Antigen Negative (Negative)
[2024-03-30 14:52] LABS: Hepatitis B Core Ab, IgM Negative (Negative)
[2024-03-30 15:07] LABS: Hepatitis B Core Ab, Total Negative (Negative); Hepatitis B Surface Antibody Negative; Hepatitis C Antibody Negative (Negative)
[2024-03-30 15:15] VITALS: BP 123/79
[2024-03-31 16:42] LABS: HLA-B27 Negative (Negative)
[2024-04-01 02:49] LABS: CCP Antibody IgG/IgA 5 Units (0-19)
[2024-04-01 02:55] LABS: Smith/RNP (ENA), IgG 2 Units (0-19)
[2024-04-01 02:55] LABS: ANA, IgG Reflex to HEp-2 None Detected (None Detected)
[2024-04-01 04:27] LABS: ds-DNA Ab, IgG Reflex To Titer 0 IU (0-24)
[2024-04-01 14:33] LABS: Albumin 2.86 g/dL (3.75-5.01); Alpha 1 Globulin 0.49 g/dL (0.19-0.46); Alpha 2 Globulin 0.86 g/dL (0.48-1.05); SPEP IFE Reflex Not Done; Total Protein-Electrophoresis 5.9 g/dL (6.3-8.2)
[2024-04-01 19:14] LABS: SSA 52 (Ro)(ENA) Ab, IgG 2 AU/mL (0-40); SSA 60 (Ro)(ENA) Ab, IgG 1 AU/mL (0-40); SSB (La)(ENA) Ab, IgG 1 AU/mL (0-40)
[2024-04-01 19:16] LABS: Myeloperoxidase Antibody 0 AU/mL (0-19); Serine Protease-3, IgG 0 AU/mL (0-19)
[2024-04-02 14:31] LABS: Rheumatoid Agglutinin Less Than 10 IU (<10 IU)
[2024-04-04 07:35] LABS: Cryoglobulin NEG 72Hour (NEG 72Hour)
== END 2024-03-30 15:44 | disposition home or self-care (01) ==
LOC: 4 WEST ACU 22:48
PROVIDERS: Nurse Practitioner; Student in an Organized Health Care Education/Training Program; ADMITTING PHYSICIAN Internal Medicine; ATTENDING PHYSICIAN Internal Medicine; CONSULT PHYSICIAN Internal Medicine Infectious Disease; EMERGENCY PHYSICIAN Emergency Medicine; FAMILY PHYSICIAN Family Medicine
DX: R50.9 Fever, unspecified (principal); D69.2 Other nonthrombocytopenic purpura; R21 Rash and other nonspecific skin eruption; R53.83 Other fatigue; E87.6 Hypokalemia; E87.1 Hypo-osmolality and hyponatremia; R51.9 Headache, unspecified; R53.81 Other malaise; F84.0 Autistic disorder; K21.9 Gastro-esophageal reflux disease without esophagitis; F17.210 Nicotine dependence, cigarettes, uncomplicated; R19.7 Diarrhea, unspecified; R11.2 Nausea with vomiting, unspecified; J45.909 Unspecified asthma, uncomplicated; Z11.52 Encounter for screening for COVID-19
CPT/HCPCS: 71046; 80048; 80053; 81003; 82595; 82784; 83516; 83605; 83735; 83935; 84145; 84155; 84165; 84300; 85025; 85027; 85610; 85652; 85730; 86038; 86140; 86160; 86200; 86225; 86235; 86430; 86704; 86705; 86706; 86803; 86812; 87040; 87324; 87340; 87449; 87502; 87811; 93970; 96361; 96374; 99284; G0378

== ENCOUNTER → 2025-01-06 07:05 | Outpatient (REF) | payer OTHER, SELFPAY ==
[2025-01-06 09:28] LABS: % Basophils 0.6 % (0-2); % Eosinophils 2.6 % (0-6); % Lymphocytes 28.2 % (20.5-51.1); % Monocytes 8.2 % (1.7-9.3); % Neutrophils 60.4 % (42.2-75.2); Absolute Eosinophils 0.2 10^3/uL (0-0.7); Absolute Lymphocytes 1.8 10^3/uL (1.2-3.4); Absolute Monocytes 0.5 10^3/uL (0.1-0.6); Absolute Neutrophils 3.8 10^3/uL (1.4-6.5); Hematocrit 39.5 % (39.0-52.0); Mean Corp Hgb Conc. 35.4 g/dL (33.0-37.0); Mean Corpuscular Hgb 32.9 pg (27.0-31.0); Mean Corpuscular Volume 92.9 fL (80.0-94.0); Mean Platelet Volume 9.2 fL (7.4-10.4); Nucleated Red Blood Cells % 0 % (-); Platelet Count 230 10^3/uL (130-400); Red Blood Cell Count 4.25 10^6/uL (4.70-6.10); White Blood Cell Count 6.2 10^3/uL (4.8-10.8)
[2025-01-06 11:02] LABS: ALT (SGPT) < 10 U/L (0-50); AST (SGOT) 23 U/L (17-59); Alkaline Phosphatase 83 U/L (38-126); Blood Urea Nitrogen 15 mg/dl (9-20); Calcium 8.9 mg/dl (8.4-10.2); Carbon Dioxide 26 mmol/L (22-30); Chloride 102 mmol/L (98-107); Glucose 70 mg/dl (70-99); HDL Cholesterol 47 mg/dl; LDL Cholesterol, Calculated 130 mg/dl; Potassium 3.7 mmol/L (3.5-5.1); Sodium 137 mmol/L (135-145); Total Bilirubin 0.6 mg/dl (0.2-1.3); Total Cholesterol 191 mg/dl (50-199); Triglyceride 70 mg/dl (10-149); Very Low Density Lipoprotein 14 mg/dl (0-30); eGFR > 60.00
[2025-01-06 11:27] LABS: TSH 1.39 uIU/ml (0.47-4.68)
== END ==
LOC: HWLAB 07:05
PROVIDERS: ATTENDING PHYSICIAN Family Medicine
DX: I10 Essential (primary) hypertension (principal); E78.5 Hyperlipidemia, unspecified; R53.83 Other fatigue; E03.9 Hypothyroidism, unspecified
CPT/HCPCS: 36415; 80053; 80061; 84443; 85025

== ENCOUNTER 2025-05-17 06:30 | Day surgery (SDC) | payer OTHER, SELFPAY | END 2025-05-17 16:14 | disposition home or self-care (01) | LOC: GI 06:30 | PROVIDERS: ATTENDING PHYSICIAN Student in an Organized Health Care Education/Training Program; FAMILY PHYSICIAN Family Medicine | DX: Z12.11 Encounter for screening for malignant neoplasm of colon (principal); R19.5 Other fecal abnormalities; K64.4 Residual hemorrhoidal skin tags; D12.3 Benign neoplasm of transverse colon; D12.2 Benign neoplasm of ascending colon; K63.5 Polyp of colon; K62.1 Rectal polyp | CPT/HCPCS: 45385; 45380; 88305 ==